=== PATIENT | male | born 1990 | race Caucasian/White ===

== ENCOUNTER → 2020-06-04 | Outpatient (CLI) | payer MEDICAID ==
[2020-06-04 16:56] LABS: HCT 47.1 % (39.0-53.0); HGB 15.3 gm/dL (13.0-17.5); MCH 29.1 pg (25.0-35.0); MCHC 32.5 g/dL (31.0-37.0); MCV 89.7 fL (80.0-100.0); Mean Platelet Volume 8.1; Platelet Count 273 k/uL (150-450); RBC 5.25 m/uL (4.30-5.90); RDW 12.7 % (11.5-15.5); WBC 8.6 k/uL (3.8-10.6)
[2020-06-04 17:11] LABS: ALT 26 U/L (4-49); AST 24 U/L (17-59); African American GFR (CKD) >90 (>60 ml/min/1.73 sqM); Albumin 4.2 g/dL (3.5-5.0); Alkaline Phosphatase 90 U/L (38-126); Anion Gap 6 mmol/L; Blood Urea Nitrogen 18 mg/dL (9-20); Calcium 9.4 mg/dL (8.4-10.2); Carbon Dioxide 29 mmol/L (22-30); Chloride 105 mmol/L (98-107); Glucose 102 mg/dL (74-99); Non-African American GFR(CKD) >90 (>60 ml/min/1.73 sqM); Potassium 4.7 mmol/L (3.5-5.1); Sodium 140 mmol/L (137-145); Total Bilirubin 0.4 mg/dL (0.2-1.3)
[2020-06-04 17:16] LABS: INR 0.9 (<1.2); Partial Thromboplastin Time 24.3 sec (22.0-30.0); Prothrombin Time 9.7 sec (9.0-12.0)
[2020-06-04 17:26] LABS: Amorphous Sediment,Urine Rare /hpf; Appearance,Urine Cloudy (Clear); Bacteria,Urine Rare /hpf; Bilirubin,Urine Negative (Negative); Blood,Urine Negative (Negative); Color,Urine Yellow; Glucose,Urine (UA) Negative (Negative); Ketones,Urine Negative (Negative); Leukocyte Esterase,Urine Negative (Negative); Mucus,Urine Rare /hpf; Nitrite,Urine Negative (Negative); Protein,Urine Negative (Negative); RBC,Urine <1 /hpf (0-5); Specific Gravity,Urine 1.017 (1.001-1.035); Urobilinogen,Urine <2.0 mg/dL (<2.0); WBC,Urine <1 /hpf (0-5)
== END | disposition home or self-care (01) ==
LOC: LABPAT 14:45
PROVIDERS: ATTEND Orthopaedic Surgery
DX: Z01.818 Encounter for other preprocedural examination (principal); M17.11 Unilateral primary osteoarthritis, right knee
CPT/HCPCS: 36415; 80053; 81001; 85027; 85610; 85730; 86850; 86900; 86901; 87070; 93005

== ENCOUNTER 2020-06-15 12:27 | Day surgery (SDC) | payer MEDICAID ==
[2020-06-12 09:15] VITALS: BMI 25.8
[~2020-06-15 12:27] MED LIST: ACETAMINOPHEN TAB 500 MG TAB PO ONE; DEXAMETHASONE SOD PHOSPHATE 4 MG/ML 1 ML VIAL IV ONE; GABAPENTIN 300 MG CAP PO ONE; MELOXICAM 7.5 MG TAB PO ONE; MIDAZOLAM 2 MG/2 ML VIAL IV PRN; ONDANSETRON 4 MG/2 ML VIAL IVP ONE; SCOPOLAMINE 1.5MG/72HR PATCH TRANSDERM ONE; TRANEXAMIC ACID 1,000 MG in SODIUM CHLORIDE 0.9% 100 ML IVPB ONE; VANCOMYCIN 1,250 MG in SODIUM CHLORIDE 0.9% 250 ML IVPB ONE
[2020-06-15] MEDS ORDERED: HYDROmorphone 0.5 MG/0.5 ML SYRINGE IVP PRN ×2 (12:41)
[2020-06-15] MEDS ORDERED: ONDANSETRON 4 MG/2 ML VIAL IVP PRN (12:41)
[2020-06-15] MEDS ORDERED: NALOXONE 0.4 MG/ML 1 ML VIAL IV PRN (12:41)
[2020-06-15] MEDS ORDERED: MAGNESIUM HYDROXIDE 2,400 MG/10 ML CUP PO PRN (12:41)
[2020-06-15] MEDS ORDERED: hydrOXYzine pamoate 25 MG CAP PO PRN (12:41)
[2020-06-15] MEDS ORDERED: diazePAM 5 MG TAB PO PRN (12:41)
[2020-06-15] MEDS ORDERED: HYDROcodone/APAP 5-325MG 1 EACH TAB PO PRN (12:41)
[2020-06-15] MEDS ORDERED: HYDROmorphone 1 MG/ML 1 ML SYRINGE IVP PRN (12:41)
[2020-06-15] MEDS: LACTATED RINGERS 1,000 ML IV SCH (12:55)
[2020-06-15] MEDS ORDERED: TRANEXAMIC ACID 1,000 MG/10 ML VIAL ONE (15:35)
[2020-06-15] MEDS ORDERED: MIDAZOLAM 2 MG/2 ML VIAL ONE (15:35)
[2020-06-15] MEDS ORDERED: SODIUM CHLORIDE 0.9% 100 ML BAG ONE (15:35)
[2020-06-15] MEDS ORDERED: fentaNYL (PF) 50 MCG/ML 2 ML AMP ONE (15:35)
[2020-06-15] MEDS ORDERED: LIDOCAINE 1% INJ 10MG/ML (20 ML MDV) ONE (15:35)
[2020-06-15] MEDS ORDERED: PROPOFOL 10 MG/ML 20 ML VIAL IV ONE (15:35)
[2020-06-15] MEDS: ROPIVACAINE 246.25 MG, EPINEPHrine 0.5 MG, KETOROLAC 30 MG, cloNIDine HCL/PF 80 MCG, WA... MISCELLANE ONE ×10 (16:28→16:47)
--- NOTE | 2020-06-15 16:55 | P.OP ---
Date of Procedure: 06/15/20 Preoperative Diagnosis: Severe osteoarthritis right hip Postoperative Diagnosis: Severe osteoarthritis right hip Procedure(s) Performed: Right total hip arthroplasty utilizing a direct anterior approach Implants: Farley and nephew Polarstem size 3 standard Farley [employer] Nephew R3, 3 hole acetabular shell, 52 mm Farley [employer] Nephew reflection 6.5 mm cancellus screw, 20 mm 2 Farley [employer]hew R3, XLPE 20 acetabular liner Farley [employer] Nephew Oxinium femoral head 36 m, -3 All components were press-fit. The articulation is Oxinium on polyethylene. Anesthesia: spinal Surgeon: Hao Peters Change Agent #1: Thuy Gomez Estimated Blood Loss (ml): 300 (180 mL returned with Cell Saver) Pathology: other (Femoral head) Condition: stable Disposition: PACU Indications for Procedure: After failure of conservative treatment we discussed the surgical and nonsurgical treatment options at length. Patient wishes to proceed with a total hip arthroplasty with a direct anterior approach. Complications specific to this procedure were discussed at length, including but not limited to infection, leg length discrepancy, dislocation, and nerve injury. Covid-19 was also discussed at length with the patient, and they are aware of the current policies and procedures. The patient was given the option of delaying surgery, but they elect to proceed knowing these risks. Patient is aware of all these complications and informed consent was obtained Operative Findings: The operative findings are consistent with severe osteoarthritis of the right hip Description of Procedure: Patient was seen and evaluated in the preoperative area, consent was reviewed, and the surgical site was marked with a skin marker. Patient was then brought to the operating room and given prophylactic antibiotics intravenously. 1 g of Tranexamic acid was also given. A spinal anesthetic was administered by the anesthesia department. The patient was then placed on the [place] table with the bony prominences well-padded. The hip area was then prepped and draped in usual sterile fashion. A universal timeout was then performed, which confirmed the patient's name, surgical site, ALLERGIES, and procedure being performed. Next the incision site was located at 1 cm distal and 1 cm lateral to the anterior superior iliac spine. The skin and subcutaneous tissues were sharply incised. Incision was ca refully dissected down to the fascia overlying the tensor fascia luis m muscle. This fascia was then incised in line with the incision. Next, using blunt finger dissection, the tensor fascia luis m muscle was dissected off its investing fascia. The muscle was then carefully retracted laterally with a cobra retractor over the lateral neck of the femur. Next, the circumflex vessels were identified and cauterized using the AquaMantis device. The anterior hip capsule was then exposed. The capsule was then opened and an inverted T fashion. Cobra retractors were then placed intracapsularly. The proximal femur was then visualized. The femoral neck was then osteotomized appropriate level above the lesser trochanter. Small amount of traction was placed with the [place] table. A small wedge of bone was then removed from the remaining femoral head. Next, using a corkscrew femoral head was easily removed from the acetabulum. On gross visual inspection, the femoral head had complete loss of articular cartilage in multiple periarticular osteophytes. Attention was then turned to the acetabulum. the acetabulum was exposed and any remaining labrum was excised. Sequential reaming of the acetabulum was performed using fluoroscopic guidance. When the appropriate size was reached, a trial was then placed. The position and fit of the trial was checked with fluoroscopy. The trial was then removed. Then, using fluoroscopic guidance, the final implant was impacted at 20 of anteversion and 40 of abduction, and fully seated in the acetabulum. 2 screws were then placed in the acetabulum. Again fluoroscopy was used to check position of the screws. Next, the liner was then impacted, with a 20 elevated liner located in the anterior superior quadrant. Component locking was confirme d. Attention was then directed to the femur. With the aid of the [place] table, the femur was externally rotated to approximately 130, extended, and abducted under the opposite leg. A side hook was then placed under the proximal femur, and the side hook elevator was used to elevate the proximal femur. Retractors were then placed. A capsular release was performed, as well as a release of the conjoined tendon, which afforded excellent visualization of the proximal femur. Next, a box osteotome was used to lateralize the proximal femur. A shank cementer hand was then used to locate the femoral canal. Sequential broaching was then performed with appropriate size which afforded excellent fixation in the proximal femur. A trial was then placed with appropriate head and neck, and the hip was gently reduced with the aid of the [place] table. Fluoroscopy was then used to check position of the components, as well as to ensure equal leg lengths. The hip was then gently dislocated and the trials were then removed. Final implants were then impacted and the hip was again reduced. Final fluoroscopic x-rays confirmed that the components were in anatomic position, as well as equal leg lengths. The hip was also taken through range of motion, and found to be stable. The hip was then copiously irrigated with antibiotic solution with pulsatile lavage. The hip was then irrigated with Irrisept solution. The soft tissues were then injected with a ropivacaine solution, which consisted of 246.25 mg of ropivacaine, 0.5 mg of epinephrine, 30 mg of Toradol, 80 g of clonidine, and 48.45 mL of sterile water, for a total of 100 mL of fluid injected. A second dose of 1 g of Tranexamic acid was also given. the fascia was then closed with 2-0 strata fix suture. The subcutaneous tissue was closed with 3-0 Vicryl. The subcuticular tissue was closed with 3-0 strata fix suture. The skin was then closed with Dermabond glue and a sterile silver dressing. The patient was then transferred to the recovery room in stable condition. The assistant front office manager YENNI Jones was required due to the complexity of surgery, and the need for skilled rn neurosurgical for positioning, draping, exposure, retraction, and closure of the wound.
[2020-06-15] MEDS ORDERED: LACTATED RINGERS 1,000 ML IV ONE (17:06)
--- NOTE | 2020-06-15 17:46 | XR ---
EXAMINATION TYPE: XR Hip Limited RT DATE OF EXAM: 06/15/2020 COMPARISON: NONE HISTORY: Postop TECHNIQUE: Single view FINDINGS: There is right hip prosthesis. Components appear in anatomic position. IMPRESSION: No complicating process seen.
[2020-06-15] MEDS: HYDROmorphone 0.5 MG/0.5 ML SYRINGE IVP PRN ×2 (19:00→19:06)
[2020-06-15] MEDS ORDERED: SODIUM CHLORIDE 0.9% 1,000 ML IV ONE ×2 (19:58)
[2020-06-15] MEDS ORDERED: SENNOSIDES-DOCUSATE SODIUM 1 EACH TAB PO SCH (21:00)
[2020-06-15] MEDS: ASPIRIN 325 MG TAB PO SCH (21:05)
[2020-06-15] MEDS: SODIUM CHLORIDE 0.9% 1,000 ML IV SCH (22:03)
[2020-06-16] MEDS: HYDROcodone/APAP 5-325MG 1 EACH TAB PO PRN ×2 (00:15→10:33)
[2020-06-16] MEDS ORDERED: VANCOMYCIN 1,250 MG in SODIUM CHLORIDE 0.9% 250 ML IVPB ONE (01:00)
[2020-06-16] MEDS: LACTATED RINGERS 1,000 ML IV SCH (01:26)
[2020-06-16] MEDS: SODIUM CHLORIDE 0.9% 1,000 ML IV SCH (04:28)
--- NOTE | 2020-06-16 08:24 | FL ---
EXAMINATION TYPE: FL guidance operating room DATE OF EXAM: 06/15/2020 HISTORY: Fluoroscopy time 1 minute and 5 seconds of fluoroscopy provided. IMPRESSION: 1. Fluoroscopy time.
[2020-06-16 08:41] VITALS: BP 138/62; PULSE 72; RESP 18; TEMP 98.1
[2020-06-16] MEDS: ASPIRIN 325 MG TAB PO SCH (08:41)
--- NOTE | 2020-06-16 08:43 | XR ---
EXAMINATION TYPE: XR Hip Complete RT DATE OF EXAM: 06/15/2020 COMPARISON: NONE HISTORY: Postop TECHNIQUE: One view submitted. FINDINGS: There is postsurgical change in near anatomic alignment. There is soft tissue edema and emphysema. IMPRESSION: 1. Postoperative change. Appears in near-anatomic alignment.
[2020-06-16] MEDS ORDERED: MELOXICAM 7.5 MG TAB PO SCH (09:00)
[2020-06-16 10:31] LABS: Basophils % (A) 0 %; Eosinophils # (A) 0.1 k/uL (0-0.7); Eosinophils % (A) 0 %; HCT 37.5 % (39.0-53.0); HGB 12.3 gm/dL (13.0-17.5); Lymphocytes # (A) 2.6 k/uL (1.0-4.8); Lymphocytes % (A) 18 %; MCHC 32.7 g/dL (31.0-37.0); MCV 88.8 fL (80.0-100.0); Mean Platelet Volume 8.6; Monocytes # (A) 0.5 k/uL (0-1.0); Monocytes % (A) 4 %; Neutrophils # (A) 10.7 k/uL (1.3-7.7); Neutrophils % (A) 76 %; Platelet Count 229 k/uL (150-450); RBC 4.22 m/uL (4.30-5.90); RDW 12.7 % (11.5-15.5)
--- NOTE | 2020-06-16 11:10 | P.DS ---
Providers Expected date of discharge: 06/16/20 Attending physician: Hao Peters Consults: 06/15/20 12:41 Consult Physician Routine Consulting Provider: Janel Wright Consult Reason/Comments: medical management Do you want consulting provider notified?: Yes Primary care physician: Raisa Pritchard MD - Discharge Diagnosis(es) (1) Osteoarthritis of right hip Current Visit: Yes Status: Acute (2) S/P total hip arthroplasty Current Visit: Yes Status: Acute Hospital Course: This is a 30-year-old male with known history of degenerative arthritis of the right hip. The patient presented for evaluation as an outpatient. After discussion and consideration patient elects to proceed with total hip arthroplasty. The patient is seen preoperatively by Dr. Peters and medically cleared for surgery by their primary care physician. Patient is admitted to [facility] on 06/15/2020 for total hip arthroplasty. The procedure is performed without complication or sequelae. The patient is doing well postoperatively. Labs and vital signs are stable on day of discharge. On day of discharge patient's hip incision is healing well. There is minimal erythema. There is no drainage noted at this time. There is minimal soft tissue swelling to the hip and thigh. Patient has full foot and ankle motion without difficulty or pain. Calf is soft and nontender to palpation. Neurovascular status to the right lower extremity is intact. Patient is discharged home in good condition. Opioid start talking form is reviewed and signed. Please see med rec for accurate list of home medications. Plan - Discharge Summary Discharge Rx Participant: Yes New Discharge Prescriptions: New Aspirin 325 mg PO BID #60 tab HYDROcodone/APAP 5-325MG [[place] 5-325] 1 - 2 tab PO Q6HR PRN #48 tab PRN Reason: Pain Sennosides [Senokot] 2 tab PO DAILY PRN #60 tablet PRN Reason: Constipation Pantoprazole [Protonix] 40 mg PO DAILY #30 tablet.dr Discharge Medication List Aspirin 325 mg PO BID #60 tab 06/16/20 [Rx] HYDROcodone/APAP 5-325MG [[place] 5-325] 1 - 2 tab PO Q6HR PRN #48 tab 06/16/20 [Rx] Pantoprazole [Protonix] 40 mg PO DAILY #30 tablet. 06/16/20 [Rx] Sennosides [Senokot] 2 tab PO DAILY PRN #60 tablet 06/16/20 [Rx] Follow up Appointment(s)/Referral(s): Raisa Pritchard MD [Primary Care Provider] - 06/22/20 10:00 am [facility] [NON-STAFF] - 1 Week [facility], [NON-STAFF] - 1 Week Hao Peters DO [Doctor of Osteopathic Medicine] - 07/01/20 2:30 pm Ambulatory/Diagnostic Orders: Walker w/ Wheels [DME.AMB1] Time Frame: 3 Months, Location: None Selected Patient Instructions/Handouts: Anterior Hip Replacement (DC) Activity/Diet/Wound Care/Special Instructions: Weightbearing as tolerated with walker. Leave dressing intact. Dressing may be removed by home care nurse or by patient in 10 days. May shower with dressing on. Please take aspirin 325mg twice daily for 30 days to prevent blood clots. Recommend use of compression stockings daily until follow up to help prevent swelling and blood clots. May remove at night before sleeping. Please follow-up with [facility] in 2 weeks and call with any questions or concerns, . Discharge Disposition: HOME WITH HOME HEALTH SERVICES
--- NOTE | 2020-06-16 21:12 | P.CONS ---
History of Present Illness - Reason for Consult Consult date: 06/16/20 (seen at 0930) tobacco abuse Requesting physician: Hao Peters - Chief Complaint hip pain - History of Present Illness Patient is a 30-year-old male for history of daily marijuana use, tobacco abuse, and osteoarthritis who presented for elective right total knee arthroplasty. He underwent procedure on 06/15 without any immediate postoperative complications. Patient seen and examined at bedside. He presents reports that his pain is well controlled. He has already been up and walking with physical therapy and has done well. He denies any nausea, vomiting, chest pain, shortness of breath. He did not have any cough, cold, fever, or flu prior to surgery. He does report that he frequently has acid reflux and indigestion. He manages this with diet control. He is agreeable to take a PPI one twice a day aspirin for DVT prophylaxis postoperatively. Review of Systems Pertinent positives and negatives as discussed in HPI, a complete review of systems was performed and all other systems are negative. Past Medical History Past Medical History: Osteoarthritis (OA) History of Any Multi-Drug Resistant Organisms: None Reported Past Surgical History: No Surgical Hx Reported Past Anesthesia/Blood Transfusion Reactions: No Reported Reaction Additional Past Anesthesia/Blood Transfusion Reaction / Comm: no family problems Past Psychological History: Anxiety Smoking Status: Current every day smoker Past Alcohol Use History: Occasional Additional Past Alcohol Use History / Comment(s): <1/2ppd for 14 yrs. Past Drug Use History: Marijuana Additional Drug Use History / Comment(s): daily use - Past Family History Mother Family Medical History: No Reported History Medications and Allergies Home Medications Medication Instructions Recorded Confirmed Type Aspirin 325 mg PO BID #60 tab 06/16/20 Rx HYDROcodone/APAP 5-325MG [[place] 1 - 2 tab PO Q6HR PRN #48 tab 06/16/20 Rx 5-325] Pantoprazole [Protonix] 40 mg PO DAILY #30 tablet. 06/16/20 Rx Sennosides [Senokot] 2 tab PO DAILY PRN #60 tablet 06/16/20 Rx Allergies Allergy/AdvReac Type Severity Reaction Status Date / Time No Known Allergies Allergy Verified 06/15/20 12:46 Physical Exam Osteopathic Statement: *. No significant issues noted on an osteopathic stru ctural exam other than those noted in the History and Physical/Consult. Vitals: Vital Signs Temp Pulse Resp BP Pulse Ox 06/16/20 08:00 72 18 06/16/20 07:00 98.1 F 72 18 138/62 98 06/16/20 02:12 97.9 F 69 15 107/64 97 Intake and Output 06/16/20 06/16/20 06/16/20 06:59 14:59 22:59 Other: # Voids 1 General: non toxic, no distress, appears older than stated age Derm: warm, dry Head: atraumatic, normocephalic, symmetric Eyes: EOMI, no lid lag, anicteric sclera, pupils equal round reactive to light Cardiovascular: S1S2 reg, no murmur, positive posterior tibial pulse bilateral, no edema, capillary refill less than 2 seconds Lungs: clear to ascultation bilateral, no ronchi, no rales, no wheeze, no accessory muscle use Abdominal: soft, nontender to palpation, no guarding, no appreciable organomegaly, normal bowel sounds Neuro: CN II-XI grossly intact,moving all 4 extremities independently Psych: Alert, oriented, appropriate affect Results CBC & Chem 7: 06/16/20 08:03 Labs: Abnormal Lab Results - Last 24 Hours (Table) 06/16/20 Range/Units 08:03 WBC 14.0 H (3.8-10.6) k/uL RBC 4.22 L (4.30-5.90) m/uL Hgb 12.3 L D (13.0-17.5) gm/dL Hct 37.5 L (39.0-53.0) % Neutrophils # 10.7 H (1.3-7.7) k/uL Assessment and Plan Assessment: Patient is a 30 yo M s/p R SIMBA GERD - PPI while on ASA, RX written Tobacco abuse - cessation Acute blood loss anemia - anticipated - no need for follow-up. Patient medically optimized for discharge. Rx written for PPI. Thank you for allowing us to participate in the care of this pleasant patient. Do not hesitate to contact us with questions. Someone can be reached from the [facility] hospitalist group all hours of the day at [phone] or via perfect serve.
== END 2020-06-16 11:22 | disposition home health service (06) ==
LOC: OR 12:27 → 5NMEDONC 19:58 → OR 06-16 11:22
PROVIDERS: ATTEND Orthopaedic Surgery
DX: M16.11 Unilateral primary osteoarthritis, right hip (principal); M25.751 Osteophyte, right hip; D62 Acute posthemorrhagic anemia; K21.9 Gastro-esophageal reflux disease without esophagitis; F41.9 Anxiety disorder, unspecified; F17.210 Nicotine dependence, cigarettes, uncomplicated; Z79.82 Long term (current) use of aspirin; Z79.1 Long term (current) use of non-steroidal anti-inflammatories (NSAID); Z79.899 Other long term (current) drug therapy; Z97.3 Presence of spectacles and contact lenses; Z82.49 Family history of ischemic heart disease and other diseases of the circulatory system
CPT/HCPCS: 97161; 97166; 86891; 86900; 86901; 85025; 86850; 88300; 73501; 73502; 27130; P9022; C1776; J2250; J0171; J3370 ×2; J1100; J2405; J2001; J3010; J1885; J1170 ×2; J2795; J2704; J0735